=== PATIENT | female | born 1990 | race Caucasian/White ===

== ENCOUNTER 2017-04-03 06:00 | Inpatient (IN) ==
[2017-04-03] MEDS ORDERED: Metoclopramide 10 MG/2 ML VIAL IVP PRN (06:19)
[2017-04-03] MEDS ORDERED: Famotidine 20 MG/2 ML VIAL IVP PRN (06:19)
[2017-04-03] MEDS ORDERED: Naloxone 0.4 MG/ML INJ IVP PRN (06:19)
[2017-04-03] MEDS ORDERED: miSOPROStol 100 MCG TABLET PO PRN (06:19)
[2017-04-03 06:26] LABS: Basophils % 0.4 %; Eosinophils # 0.1 K/mcL (0.0-0.6); Eosinophils % 1.2 %; Hematocrit 39.7 % (35.3-44.9); Hemoglobin 12.9 g/dL (11.5-15.4); Immature Granulocytes % 0.6 % (0-4); Lymphocytes # 2.3 K/mcL (0.6-4.6); Lymphocytes % 25.2 %; Mean Corpuscular HGB Conc 32.5 g/dL (31.6-35.5); Mean Corpuscular Hemoglobin 28.4 pg (28.0-33.3); Mean Corpuscular Volume 87.4 fL (83.0-100.0); Monocytes # 0.7 K/mcL (0.0-1.3); Monocytes % 7.5 %; Neutrophils # 5.9 K/mcL (1.6-8.9); Platelet Count 210 K/mcL (140-400); Red Blood Count 4.54 M/mcL (3.82-4.97); Red Cell Distribution Width 15.5 % (11.5-14.5); Segmented Neutrophils % 65.1 %
[2017-04-03] MEDS ORDERED: Ringers Solution, Lactated 1,000 ML IVC SCH (06:30)
--- NOTE | 2017-04-03 09:03 | OB Labor Progress Note ---
Date of Encounter: 04/03/17 Time of Encounter: 09:00 Labor Progress Note - Subjective Subjective: Uncomfortable and requesting an epidural - Vital Signs Vital Signs: afeb, VSS - Cervix Cervix: 5-6/90/-1 vtx w/ BBOW - Heart Tones Heart Tones: 140s CAT1 - [place]: ctx q 2-3', S/p cytotec 50 mcg po - Interventions Interventions: 39w3d IUP w/ h/o preeclampsia, induction of labor. Epidural per pt request - Plan Plan: Epidural, anesthesia notified, anticipate
[2017-04-03] MEDS ORDERED: Bupivacaine-MPF 0.25% 10 ML VIAL EP ONE (09:06)
[2017-04-03] MEDS ORDERED: Ondansetron 4 MG/2 ML VIAL IVP PRN (09:06)
[2017-04-03] MEDS ORDERED: *HR* FentaNYL (PF) 100 MCG/2 ML VIAL EP ONE (09:06)
[2017-04-03] MEDS ORDERED: EPHEDrine 50 MG/ML VIAL IVP PRN (09:06)
--- NOTE | 2017-04-03 09:11 | Anesthesia Evaluation PreOp ---
Date of Encounter: 04/03/17 Time of Encounter: 09:08 - Past History Planned Operation: АНДРЕЙ Cardiac History: Denies any Significant Hx Pulmonary History: Denies Any Significant HX [employer] History: Denies Any Significant HX Other Medical History: Denies Any Significant HX, Other (Pre eclampsia previous , anemia) Anesthesia History: No Prior Anesthetic Complications, Past Anesthesia ( Epidural without complications) Alcohol Use: none Drug use: none Medications and Allergies Aspirin 81 mg PO DAILY 04/03/17 [History] Ferrous Sulfate [Ferrous Sulfate] 325 mg PO DAILY 04/03/17 [History] Multivitamin [Flintstones] 1 each PO DAILY 04/03/17 [History] Allergies No Known Allergies Allergy (Verified 04/03/17 06:47) - Meds/Allergy Pre-op Review Medications Reviewed: Yes Allergies Reviewed: Yes Beta Blockers on Current Med List: No Anesthesia Results - Labs 04/03/17 06:10 Anesthesia Exam BP 129/71 P 66 R 18 Spo2 97 T 97.8 Height: 5'2" Weight: 69.2kg NPO (# of Hours): 4 Pain Scale: 8 Pain Scale Used: Numeric (1 - 10) - HEENT Pupil (Motor): Pupils equal Mallampati: II Teeth: Normal Oral Opening: Greater than 3 - [employer] Motor: Normal RUE, Normal LUE, Normal RLE, Normal LLE, Normal Face [employer] Sensory: Normal: RUE, LUE, RLE, LLE, Face - Cardiac Rhythm: Regular Murmur: None JVD: No Carotid Bruit: No - Pulmonary Breath Sounds: bilateral Clear Respiratory Effort: Symmetrical Anesthesia Assess/Plan ASA Score: 2 Modified [place] Scale for Level of Consciousness: Cooperative, oriented, and tranquil Anesthetic Plan: Regional Autologous Blood: No Monitoring Plan: Standard Monitors Recovery Plan: PACU
[2017-04-03] MEDS ORDERED: *HR* Phenylephrine 10 MG/ML VIAL ONE (09:13)
[2017-04-03] MEDS ORDERED: Bupivacaine-MPF 0.25% 10 ML VIAL ONE (09:15)
[2017-04-03] MEDS ORDERED: Epidural Premix (fent/bupiv) 110 ML EP SCH (09:15)
[2017-04-03] MEDS ORDERED: Epidural Premix (fent/bupiv) 110 ML EP ONE (09:16)
[2017-04-03] MEDS ORDERED: Oxytocin 20 units/ LR 1000 mL 40 UNIT/2,000 ML BAG IVC ONE (09:45)
--- NOTE | 2017-04-03 09:47 | Anesthesia Procedures ---
Date of Encounter: 04/03/17 Time of Encounter: 09:20 Procedures: Anesthesia - Epidural/Spinal Patient ID/Chart reviewed: Yes Patient examined: Yes OB Eval: Gestational age: 39 OB Eval: : 2 OB Eval: Hx Para: 1 OB Eval: Dilated at (cm): 7 OB Eval: Contractions: Non-stressed pattern Consent Obtained: Yes Supplemental Oxygen: None/Room Air Site Prep: Aseptic Technique, Sterile prep and drape, Povidone-Iodine 1% Patient position: upright Local Anesthetic: Lidocaine 1% Amount of Local Anesthetic used: 3 Touhy Needle Gauge: 18 Touhy Needle Depth (cm): 5 Catheter Depth at Skin (cm): 14 Test Dose (1.5% Lido + Epi): Volume given (mls): 3 Test Dose Result: Negative Loading Dose: 0.25% Marcaine (mls): 10 Loading Dose: Fentanyl (mcg): 100 Loading Dose Administered: Thru Catheter Infusion Med: 0.125% Bupivacaine w/ 2 mcg/ml Fentanyl Catheter Secured in Place: Tegaderm, Tape Interspace Used: L4-L5 Loss of Resistance (AURORA): Yes Blood: No CSF: No Paresthesia: No Procedure: АНДРЕЙ placed in upright position 1st pass without any immediate noted complications. VSS throughout. FHT 140s Vitals + FHT's: 0920 BP 129/71 P 66 0920 BP 121/54 P 101
--- NOTE | 2017-04-03 09:51 | OB/GYN History & Physical ---
Date of Encounter: 04/03/17 Time of Encounter: 09:48 Assessment and Plan (1) 39 weeks gestation of Current visit: Yes Status: Acute Admitted for IOL 50mcg cytotec po at 0703 History of Present Illness Chief complaint: Scheduled IOL at 39w3d for Term with favorable cervix HPI: Ms. Lyle is a 27 year old female @ 39w3d presents to labor and delivery at 0600 for scheduled induction of labor for Dr. Iglesias. Regalado score was 9 on induction consent. Patient reports +FM. SROM at 0852 clear fluid. Patient rapidly progressed to complete following epidural placement. Blood type:A+, Rubella: Immune, Hep B: nonreactive, GBS: Negative. Past Med Surg Social Fam HX - Past Medical History Source: patient Medical history: no medical history Psychiatric history: no psych history - Past Surgical History Surgical History: no surgical history - Social History Smoking Status: Never smoker Smokeless Tobacco Status: No Alcohol use: none Drug use: none Current living situation: Home - Independent Activity Level: Independent ambulation Recent Out of Country Travel Within the Last 8 Weeks: No Exposure or Possible Exposure to Illness During Travel: No - Family History Mother Living Status: Still Living Hx Family Cardiac Disorders: No Hx Family Respiratory Disorders: Yes (COPD) Hx Family Cancer: No Hx Family GI Disorders: No Hx Family Genitourinary Disorders: No Hx Family Endocrine Disorder: No Hx Family Musculoskeletal Disorders: No Hx Family Neuromuscular Disorders: No Hx Family Neurologic Disorders: No Hx Family HEENT Disorders: No Hx Family Autoimmune Disorders: No Hx Family Reproductive Disorders: No Hx Family Psychosocial Disorders: No Hx Family Medical Disorders: No Obstetrical History - Pregnancies : 2 Para: 1 Term: 0 : 0 Ab's: 0 Livin Medications and Allergies Aspirin 81 mg PO DAILY 04/03/17 [History] Ferrous Sulfate [Ferrous Sulfate] 325 mg PO DAILY 04/03/17 [History] Multivitamin [Flintstones] 1 each PO DAILY 04/03/17 [History] Allergies No Known Allergies Allergy (Verified 04/03/17 06:47) Review of System OB - Constitutional Constitutional ROS IM: no chills, no fever(s), no headache(s) - Cardiovascular Cardiovascular: no chest pain, no lightheadedness, no palpitations, no rapid heart rate, no slow heart rate, no syncope - Respiratory Respiratory: no cough - Gastrointestinal Gastrointestinal: no constipation, no diarrhea, no heartburn, no nausea, no vomiting - Genitourinary Genitourinary: no abnormal vaginal bleeding, no dysuria, no flank pain, no urinary incontinence, no urinary urgency Exam - Constitutional Constitutional: well developed, well nourished, no acute distress, average body habitus - HEENT HEENT: Normocephaly, Mucus Membranes Moist - Neck Neck exam: full ROM, supple - Lungs Respiratory exam: CTAB - Cardiovascular Cardiovascular exam: RRR, +S1, +S2 - Abdomen Abdomen: Present: bowel sounds normal, gravid, non tender - Extremities Extremities exam: full ROM, normal capillary refill, normal inspection Deep Tendon Reflex Grade: 2+ Normal - Uterus Uterus exam: Present: normal size, normal contour - Anus/Rectum Anus/Rectum: Present: normal perianal skin (FHR 125 bpm moderate variability + 15x15 accels early decels noted. Contractions 1-1.5 min apart.) Results Result Diagrams: 04/03/17 06:10 Abnormal lab results RDW 15.5 % (11.5-14.5) H 04/03/17 06:10 All other labs normal. - VTE Reasons for not Prescribing Prophylaxis: Treatment not Indicated - Low risk for VTE
--- NOTE | 2017-04-03 10:36 | OB/GYN Procedure Note ---
Delivery - Delivery Date: 04/03/17 Provider: Merced Iglesias Intrapartum events: none Delivery induction: misoprostol Delivery monitor: external FHT, external uterine Anesthesia: epidural Estimated Blood Loss: 100 - Infant (s) A Infant Delivery Date: 04/03/17 Infant Delivery Time: Presentation: vertex Position: NAVI Route of delivery: Gender: Female Viability: Viable Pounds: 8 Ounces: 6 Weight Gram: 3.8 kg at 1 minute: 8 at 5 mins: 9 Shoulder Dystocia: not encountered Placenta: spontaneous, uterine exploration Cord: nuchal cord (x2), 3 umbilical vessels (Prepared with 4-0 Vicryl), nuchal reduced - Repair Episiotomy: none Laceration Description: Perineal - 1st Degree - Complications Delivery complications: none Delivery comments: The patient was complete and pushing with epidural anesthesia with a spontaneous vaginal delivery in the NAVI position of a vigorous female weighing 8 lbs. 6 oz. with Apgars of 8at 1 minute and 9 at 5 minutes. Nuchal cord X2 was reduced on perineum. Infant was placed on the maternal abdomen. The cord was clamped and cut after pulsations ceased. The placenta was delivered spontaneous and intact. There was a first-degree perineal laceration which was not hemostatic and was repaired with 4-0 Vicryl in the usual fashion. The uterus was explored and no retained products of conception noted. Estimated blood loss 100 mL, complications none - Disposition Mom disposition: stable in LDR [place] disposition: stable in LDR
[2017-04-03] MEDS ORDERED: Acetaminophen 325 MG TABLET PO PRN (12:56)
[2017-04-03] MEDS ORDERED: Oxytocin 20 units/ LR 1000 mL 20 UNIT/1,000 ML BAG IVC SCH (12:56)
[2017-04-03] MEDS ORDERED: Measles/Mumps/Rubella Vacc 0.5 ML VIAL SQ PRN (12:56)
[2017-04-03] MEDS: Ibuprofen 600 MG TABLET PO PRN (19:52)
[2017-04-04] MEDS: Ibuprofen 600 MG TABLET PO PRN ×2 (04:48→21:23)
[2017-04-04 06:12] LABS: Basophils # 0.1 K/mcL (0.0-0.2); Basophils % 0.4 %; Eosinophils # 0.2 K/mcL (0.0-0.6); Eosinophils % 1.7 %; Hemoglobin 11.9 g/dL (11.5-15.4); Immature Granulocytes % 0.7 % (0-4); Lymphocytes # 2.6 K/mcL (0.6-4.6); Lymphocytes % 22.8 %; Mean Corpuscular HGB Conc 32.2 g/dL (31.6-35.5); Mean Corpuscular Hemoglobin 28.3 pg (28.0-33.3); Mean Corpuscular Volume 87.9 fL (83.0-100.0); Mean Platelet Volume 11.4 fL (9.4-12.4); Monocytes # 0.9 K/mcL (0.0-1.3); Monocytes % 7.7 %; Neutrophils # 7.7 K/mcL (1.6-8.9); Platelet Count 182 K/mcL (140-400); Red Blood Count 4.21 M/mcL (3.82-4.97); Red Cell Distribution Width 15.6 % (11.5-14.5); Segmented Neutrophils % 66.7 %
[2017-04-04] MEDS: Prenatal Vit/FA 1 EACH TABLET PO SCH (09:46)
--- NOTE | 2017-04-04 10:39 | OB/GYN Progress Note ---
Date of Encounter: 04/04/17 Time of Encounter: 10:37 - Assessment and Plan (1) Status post vaginal delivery Current Visit: Yes Status: Acute s/p , PPD#1, patient doing very, cont current inpt care, ok for discharge tomorrow Subjective - Subjective Patient reports: appetite normal, voiding normally, pain well controlled, ambulating normally Objective - Latest Vital Signs Latest vital signs: Vital Signs Temp Pulse Pulse Resp BP Pulse Ox 04/04/17 08:10 98.1 F 61 16 144/85 98 04/04/17 05:59 129/81 04/04/17 04:45 98.3 F 58 20 155/92 98 04/03/17 23:00 97.8 F 67 16 127/77 97 04/03/17 21:08 124/79 04/03/17 19:56 99 F 60 20 148/91 97 04/03/17 14:50 98.0 F 63 63 16 144/88 97 04/03/17 13:45 98.4 F 60 16 152/91 98 04/03/17 12:45 98.3 F 68 16 145/82 97 Intake and Output 04/03/17 04/04/17 04/04/17 23:59 07:59 15:59 Intake Total 759 / 759 300 / 300 240 / 240 Output Total 500 / 500 1900 / 1900 100 / 100 Balance 259 / 259 -1600 / -1600 140 / 140 Intake: Oral 759 / 759 300 / 300 240 / 240 Output: Urine 500 / 500 1900 / 1900 100 / 100 Other: Meal Breakfast Percent of Meal Consumed 100% Weight 64.41 kg Patient Weight 04/04/17 23:59 Weight 64.41 kg - Exam Lungs: bilateral: normal Chest: Normal S1, Normal S2 Extremities: Present: normal Abdomen: Present: normal appearance Uterus: Present: firm - Labs Labs: Laboratory Results - last 24 hr 04/04/17 05:39 WBC 11.5 H RBC 4.21 Hgb 11.9 Hct 37.0 MCV 87.9 MCH 28.3 MCHC 32.2 RDW 15.6 H Plt Count 182 MPV 11.4 Immature Gran % 0.7 Seg Neutrophils % 66.7 Lymphocytes % 22.8 Monocytes % 7.7 Eosinophils % 1.7 Basophils % 0.4 Neutrophils # 7.7 Lymphocytes # 2.6 Monocytes # 0.9 Eosinophils # 0.2 Basophils # 0.1
[2017-04-04 12:35] LABS: Alanine Aminotransferase 14 Units/L (0-55); Aspartate Amino Transferase 33 Units/L (5-34); BUN/Creatinine Ratio 12 (6-26); Blood Urea Nitrogen 8 mg/dL (7-20); Lactate Dehydrogenase 427 Units/L (159-327); Uric Acid 5.1 mg/dL (2.6-6.0); eGFR For African Americans > 60 (> 60); eGFR For Non-African Americans > 60 (> 60)
[2017-04-04 12:38] LABS: Basophils % 0.3 %; Eosinophils # 0.2 K/mcL (0.0-0.6); Eosinophils % 1.8 %; Hematocrit 37.7 % (35.3-44.9); Immature Granulocytes % 0.5 % (0-4); Lymphocytes # 1.9 K/mcL (0.6-4.6); Lymphocytes % 16.1 %; Mean Corpuscular HGB Conc 31.8 g/dL (31.6-35.5); Mean Corpuscular Hemoglobin 28.2 pg (28.0-33.3); Mean Corpuscular Volume 88.7 fL (83.0-100.0); Mean Platelet Volume 11.3 fL (9.4-12.4); Monocytes # 0.6 K/mcL (0.0-1.3); Monocytes % 5.3 %; Platelet Count 196 K/mcL (140-400); Red Blood Count 4.25 M/mcL (3.82-4.97); Red Cell Distribution Width 15.6 % (11.5-14.5)
[2017-04-05] MEDS ORDERED: NIFEdipine XL (24 HR) 60 MG TAB.ER.24 PO SCH (09:00)
[2017-04-05 09:01] LABS: Basophils # 0.1 K/mcL (0.0-0.2); Basophils % 0.6 %; Eosinophils # 0.4 K/mcL (0.0-0.6); Eosinophils % 4.2 %; Hematocrit 36.9 % (35.3-44.9); Hemoglobin 11.8 g/dL (11.5-15.4); Immature Granulocytes % 0.5 % (0-4); Immature Platelets 7.1 % (1.1-6.1); Lymphocytes # 1.9 K/mcL (0.6-4.6); Lymphocytes % 20.7 %; Mean Corpuscular Hemoglobin 28.1 pg (28.0-33.3); Mean Corpuscular Volume 87.9 fL (83.0-100.0); Mean Platelet Volume 10.7 fL (9.4-12.4); Monocytes # 0.5 K/mcL (0.0-1.3); Monocytes % 5.7 %; Neutrophils # 6.3 K/mcL (1.6-8.9); Platelet Count 213 K/mcL (140-400); Red Cell Distribution Width 15.6 % (11.5-14.5); Segmented Neutrophils % 68.3 %
[2017-04-05] MEDS: Prenatal Vit/FA 1 EACH TABLET PO SCH (09:05)
[2017-04-05 09:14] LABS: Alanine Aminotransferase 11 Units/L (0-55); Aspartate Amino Transferase 23 Units/L (5-34); BUN/Creatinine Ratio 12 (6-26); Blood Urea Nitrogen 9 mg/dL (7-20); Lactate Dehydrogenase 260 Units/L (159-327); Uric Acid 5.3 mg/dL (2.6-6.0); eGFR For African Americans > 60 (> 60); eGFR For Non-African Americans > 60 (> 60)
--- NOTE | 2017-04-05 11:36 | Discharge Summary ---
Date of Encounter: 04/05/17 Time of Encounter: 11:34 - Discharge Diagnosis (1) Pre-eclampsia in period Priority: Secondary Status: Acute Comments: Patient responding to current treatment and plan on continuing Procardia at home with PIH warnings. Patient has blood pressure monitor cuff at home. She is to call for systolic blood pressure greater than 160 or diastolic blood pressure greater than 110 or persistent PIH symptoms (2) Status post vaginal delivery Priority: Primary Status: Acute - Discharge Medications Prescriptions: Ibuprofen [Motrin] 600 mg PO Q6HR PRN #30 tablet PRN Reason: Moderate Pain NIFEdipine XL (24 HR) [Procardia XL] 60 mg PO DAILY #30 tab.er.24 Home Medications: Aspirin 81 mg PO DAILY 04/03/17 [History] Multivitamin [Flintstones] 1 each PO DAILY 04/03/17 [History] Ibuprofen [Motrin] 600 mg PO Q6HR PRN #30 tablet 04/05/17 [Rx] NIFEdipine XL (24 HR) [Procardia XL] 60 mg PO DAILY #30 tab.er.24 04/05/17 [Rx] Allergies/Adverse Reactions: Allergies No Known Allergies Allergy (Verified 04/03/17 06:47) Data Procedures and tests throughout hospitalization: Laboratory Tests 04/03/17 04/04/17 04/04/17 06:10 05:39 05:39 WBC 9.0 11.5 H RBC 4.54 4.21 Hgb 12.9 11.9 Hct 39.7 37.0 MCV 87.4 87.9 MCH 28.4 28.3 MCHC 32.5 32.2 RDW 15.5 H 15.6 H Plt Count 210 182 MPV 12.0 11.4 Immature Gran % 0.6 0.7 Seg Neutrophils % 65.1 66.7 Lymphocytes % 25.2 22.8 Monocytes % 7.5 7.7 Eosinophils % 1.2 1.7 Basophils % 0.4 0.4 Neutrophils # 5.9 7.7 Lymphocytes # 2.3 2.6 Monocytes # 0.7 0.9 Eosinophils # 0.1 0.2 Basophils # 0.0 0.1 Immature Plt Fraction BUN 8 Creatinine 0.69 Est GFR ( Amer) > 60 Est GFR (Non-Af Amer) > 60 BUN/Creatinine Ratio 12 Uric Acid 5.1 AST 33 ALT 14 Lactate Dehydrogenase 427 H 04/04/17 04/05/17 04/05/17 12:30 08:51 08:51 WBC 11.9 H 9.3 RBC 4.25 4.20 Hgb 12.0 11.8 Hct 37.7 36.9 MCV 88.7 87.9 MCH 28.2 28.1 MCHC 31.8 32.0 RDW 15.6 H 15.6 H Plt Count 196 213 MPV 11.3 10.7 Immature Gran % 0.5 0.5 Seg Neutrophils % 76.0 68.3 Lymphocytes % 16.1 20.7 Monocytes % 5.3 5.7 Eosinophils % 1.8 4.2 Basophils % 0.3 0.6 Neutrophils # 9.0 H 6.3 Lymphocytes # 1.9 1.9 Monocytes # 0.6 0.5 Eosinophils # 0.2 0.4 Basophils # 0.0 0.1 Immature Plt Fraction 7.1 H BUN 9 Creatinine 0.75 Est GFR ( Amer) > 60 Est GFR (Non-Af Amer) > 60 BUN/Creatinine Ratio 12 Uric Acid 5.3 AST 23 ALT 11 Lactate Dehydrogenase 260 Labs on day of discharge: Labs from last 24 hours 04/05/17 04/05/17 04/04/17 08:51 08:51 12:30 WBC 9.3 11.9 H RBC 4.20 4.25 Hgb 11.8 12.0 Hct 36.9 37.7 MCV 87.9 88.7 MCH 28.1 28.2 MCHC 32.0 31.8 RDW 15.6 H 15.6 H Plt Count 213 196 MPV 10.7 11.3 Immature Gran % 0.5 0.5 Seg Neutrophils % 68.3 76.0 Lymphocytes % 20.7 16.1 Monocytes % 5.7 5.3 Eosinophils % 4.2 1.8 Basophils % 0.6 0.3 Neutrophils # 6.3 9.0 H Lymphocytes # 1.9 1.9 Monocytes # 0.5 0.6 Eosinophils # 0.4 0.2 Basophils # 0.1 0.0 Immature Plt Fraction 7.1 H BUN 9 Creatinine 0.75 Est GFR ( Amer) > 60 Est GFR (Non-Af Amer) > 60 BUN/Creatinine Ratio 12 Uric Acid 5.3 AST 23 ALT 11 Lactate Dehydrogenase 260 04/04/17 05:39 WBC RBC Hgb Hct MCV MCH MCHC RDW Plt Count MPV Immature Gran % Seg Neutrophils % Lymphocytes % Monocytes % Eosinophils % Basophils % Neutrophils # Lymphocytes # Monocytes # Eosinophils # Basophils # Immature Plt Fraction BUN 8 Creatinine 0.69 Est GFR ( Amer) > 60 Est GFR (Non-Af Amer) > 60 BUN/Creatinine Ratio 12 Uric Acid 5.1 AST 33 ALT 14 Lactate Dehydrogenase 427 H Date of admission: 04/03/17 06:04 Primary care physician: PCP NO Consults: 04/03/17 12:56 Consult to Security Representative [CONS] Routine Comment: Vaginal delivery, consult needed Discharging clinician: Merced Iglesias Anticipated date of discharge: 04/05/17 - Patient Status Disposition: Home, Self-Care Condition: Good Functional capacity at discharge: independent ambulation Overall status at discharge: patient is progressing back to baseline - Discharge Instructions Follow Up With: NO,PCP [Primary Care Provider] - Additional Instructions: Perineal Care: Always wipe front to back Change your pad frequently Use your tigre bottle with warm water and spray front to back Do not douche, use tampons, have sexual intercourse or put anything in your vagina for 4-6 weeks after delivery Bleeding: Vaginal bleeding can last up to 6 weeks Your menstrual period may return as early as 6 weeks after you are discharged from the hospital [place]/Stitches Care: Vaginal Delivery Vaginal stitches will dissolve within 4-6 weeks Follow perineal care instructions Care Stitches will dissolve on their own If you have michaelle, they will need to be removed in the doctors office within 5-7 days. You may shower with stitches or michaelle Drip plan or soapy water over the incision to clean. Pat dry gently with a clean towel. Make sure you completely dry under the skin folds DO NOT USE powders, lotions, rubbing alcohol or hydrogen peroxide on or around your incision. This will slow your wound healing It is normal to have soreness, burning, tingling, itchiness and/or numbness as your incision heals Activity: Rest frequently Do not lift anything heavier than a gallon of milk, up to 10-15 pounds No driving for 1-2 weeks for Vaginal delivery No driving for 2-4 weeks for delivery Take stairs slowly, one at a time Gradually increase your daily activity until you are back to your normal routine Do not exercise until you have had your follow-up appointment Bathing: Take a shower daily Do not take a tub bath for the first 4 weeks Diet: Drink plenty of water and fruit juices Eat a well-balanced diet with foods high in fiber such as fruits and vegetables Depression: Your hormones have a major impact on your feelings and emotions. Hormone imbalance may cause changes in your mood, creating unfamiliar thoughts and actions. Support is available to help you understand and cope with these feelings and mood changes. If you answer yes to any of the following questions, please call your health care provider: Are you having trouble sleeping? Are you feeling isolated? Have you lost your appetite? Are you having thoughts of hurting yourself or others? WARNING SIGNS: Heavy bleeding from the vagina (blood is bright red and soaks a sanitary pad in an hour or less.) Passing a blood clot larger than your fist Discharge from the vagina that has a bad odor Temperature over 100.4 F, or if you feel cold and have chills An episiotomy site that is warm, swollen or oozing. Use a mirror if needed Urination (pee) that is painful, very red and swollen or leaking fluid An incision that is painful, very red and swollen and leaking fluid An incision that has come open Breasts that are painful or full with flu like symptoms Redness, warmth or swelling in the calf of your leg Trouble breathing, dizziness, visual disturbance or faintness *Notify your health care provider immediately or go to the nearest Emergency Room if you experience any of the above signs.* To contact the nurses station 24 hours a day, For non-urgent, routine questions, please call the office at - Diet and Activity Activity: increase activity as tolerated, resume usual activities as tolerated Diet: regular diet Hospital Course Reason for admission: induction of labor, pre-eclampsia Delivery: Episiotomy: none Laceration: 1st degree Other procedures: none complications: none Discharge diagnosis: IUP at term delivered, pre-eclampsia [place] baby: female Hospital course: The patient is day 2. She has had blood pressures that have been increasing since delivery. She denies any headache, blurred vision or epigastric pain. Her PIH labs are reassuring. She has been started on Procardia 60 mg daily with good response. She is requesting discharge. She has had preeclampsia before and has been able to monitor blood pressures at home successfully. Time Attestation: Total time spent providing and/or coordinating discharge services: Time Spent: Less than 30 minutes Exam - Constitutional Vitals: Temp Pulse Resp BP Pulse Ox 98.4 F 60 16 133/80 98 04/05/17 07:40 04/05/17 11:00 04/05/17 11:00 04/05/17 11:00 04/05/17 07:40 General appearance IM: cooperative, A&O X 3, pleasant, no acute distress - Respiratory Respiratory exam: Present: CTAB. Absent: respiratory distress - Cardiovascular Cardiovascular exam IM: Present: RRR. Absent: irregular rhythm - GI/Abdominal GI/Abdominal exam IM: normal bowel sounds, soft, no peritoneal signs - Rectal Rectal exam: deferred - Uterine Tone: Firm Uterus Position: 2 Fingers Below Umbilicus - Extremities Exam Extremities exam IM: Present: normal inspection, warm. Absent: calf tenderness , tenderness - Neurological Exam Neurological exam: alert, no focal deficits
[2017-04-05 11:37] VITALS: BP 129/85
== END 2017-04-05 12:45 | disposition home or self-care (01) | DRG 560 ==
LOC: 1NENULAB 06:04 → 1NENUOBS 12:54
PROVIDERS: ADMIT Obstetrics & Gynecology; ATTEND Obstetrics & Gynecology